=== PATIENT | female | born 1975 | race Caucasian/White ===

== ENCOUNTER → 2025-01-03 09:12 | Outpatient (REF) | payer BC, SELFPAY | LOC: WDC 09:12 | PROVIDERS: ATTENDING PHYSICIAN Physician Assistant; FAMILY PHYSICIAN Family Medicine | DX: N64.4 Mastodynia (principal) | CPT/HCPCS: 76642; 77062; 77066 ==

== ENCOUNTER 2025-02-09 06:12 | Day surgery (SDC) | payer BC, SELFPAY ==
[2025-02-09] VITALS (10 sets, daily range): BP systolic 114–130; BP diastolic 67–91; BMI 24.9
[2025-02-09] MEDS: NORMOSOL-R/PLASMALYTE-A 1000 IV (10:25)
[2025-02-09] MEDS: TYLENOL 1000 MG PO (10:54)
== END 2025-02-09 14:25 | disposition home or self-care (01) ==
LOC: SDS 06:12
PROVIDERS: ATTENDING PHYSICIAN Otolaryngology Facial Plastic Surgery
DX: S02.2XXA Fracture of nasal bones, initial encounter for closed fracture (principal); X58.XXXA Exposure to other specified factors, initial encounter; J34.89 Other specified disorders of nose and nasal sinuses; J34.2 Deviated nasal septum; J34.3 Hypertrophy of nasal turbinates; J32.0 Chronic maxillary sinusitis
CPT/HCPCS: 30140; 21335